=== PATIENT | female | born 1940 | race Caucasian/White ===

== ENCOUNTER 2024-01-15 00:12 | Inpatient (IN) | payer MEDICARE, OTHER ==
[2024-01-15] MEDS ORDERED: Ondansetron PF 4 MG/2 ML Vial IVP PRN (03:01)
[2024-01-15] MEDS ORDERED: Acetaminophen 325 MG TAB PO PRN (03:01)
[2024-01-15 03:11] VITALS: BMI 33.8
[2024-01-15 05:15] LABS: Hematocrit 37.4 % (36.0-47.0); Hemoglobin 12.1 g/dL (12.0-16.0); Manual Diff?? YES; Mean Corpuscular HGB CONC 32.4 g/dL (32.0-36.0); Mean Corpuscular Volume 92.8 fl (78.0-98.0); Mean Platelet Volume 9.7 fL (7.4-10.4); Platelet Count 108 10x3/uL (130-400); RBC Distribution Width 14.1 % (11.5-14.5); Red Blood Cell (RBC) Count 4.03 mill/uL (4.20-5.40); White Blood Cell (WBC) Count 40.5 10x3/uL (4.8-10.8)
[2024-01-15 05:21] LABS: Delete Auto Diff?? YES
[2024-01-15 05:34] LABS: ALT (SGPT) 13 U/L (8-55); AST (SGOT) 21 U/L (5-34); Albumin 3.8 g/dL (3.4-4.8); Alkaline Phosphatase 48 U/L (40-110); Anion Gap 10 mmol/L (10-20); BUN (Urea Nitrogen) 17 mg/dL (9.8-20.1); Bilirubin, Total 1.5 mg/dL (0.2-1.2); Calc. Creatinine Clearance 70 mL/min (70-130); Calcium 8.9 mg/dL (7.8-10.44); Carbon Dioxide 30 mmol/L (23-31); Chloride 103 mmol/L (98-107); Estimated GFR 67; Glucose 129 mg/dL (83-110); Protein, Total 5.8 g/dL (5.8-8.1); Sodium 139 mmol/L (136-145)
[2024-01-15 05:59] LABS: CellaVision Operator ID lab.sh2; Hypochromia SLIGHT = 6-15 cells HPF (0-5); Lymphocytes 60 % (21-51); Monocytes 2 % (0-10); Neutrophil 38 % (42-75); Ovalocytes SLIGHT = 2-5 cells HPF (0-1); Platelet Adequacy Comment Platelets Decreased; Polychromasia SLIGHT = 2-3 cells HPF (0-2); Total Cell Count 50
[2024-01-15] MEDS: Famotidine 20 MG TAB PO SCH (08:58)
[2024-01-15] MEDS: Thyroid 60 MG TAB PO SCH (10:54)
[2024-01-15] MEDS ORDERED: Glucagon 1 MG/ML KIT IM PRN (15:46)
[2024-01-15] MEDS ORDERED: Dextrose 5% in Water 1,000 ML IV PRN (15:46)
[2024-01-15] MEDS ORDERED: HumaLOG 300 UNITS/3 ML VIAL SC PRN ×2 (15:46)
[2024-01-15] MEDS ORDERED: Dextrose 50% Abboject 50 ML SYRINGE SLOW IVP PRN (15:46)
[2024-01-15] MEDS: Ciprofloxacin 500 MG TAB PO SCH (19:35)
[2024-01-16] MEDS: Ibuprofen 200 MG TAB PO PRN (05:32)
[2024-01-16 06:27] LABS: Hematocrit 36.2 % (36.0-47.0); Hemoglobin 11.8 g/dL (12.0-16.0); Manual Diff?? YES; Mean Corpuscular HGB CONC 32.6 g/dL (32.0-36.0); Mean Corpuscular Hemoglobin 29.6 pg (27.0-31.0); Mean Platelet Volume 9.9 fL (7.4-10.4); Platelet Count 99 10x3/uL (130-400); RBC Distribution Width 14.1 % (11.5-14.5); Red Blood Cell (RBC) Count 3.98 mill/uL (4.20-5.40); White Blood Cell (WBC) Count 36.2 10x3/uL (4.8-10.8)
[2024-01-16 06:37] LABS: Delete Auto Diff?? YES
[2024-01-16 07:00] LABS: Anion Gap 13 mmol/L (10-20); BUN (Urea Nitrogen) 20 mg/dL (9.8-20.1); Calc. Creatinine Clearance 64 mL/min (70-130); Carbon Dioxide 25 mmol/L (23-31); Chloride 105 mmol/L (98-107); Estimated GFR 60; Glucose 101 mg/dL (83-110); Potassium 3.8 mmol/L (3.5-5.1); Sodium 139 mmol/L (136-145)
[2024-01-16 07:28] LABS: CellaVision Operator ID LAB.KW3; Eosinophils 3 % (0-10); Lymphocytes 70 % (21-51); Monocytes 6 % (0-10); Neutrophil 20 % (42-75); Platelet Adequacy Comment Platelets Decreased; RBC Morphology Within Normal Limits; Reactive Lymphocytes 1 % (0-10); Total Cell Count 99
[2024-01-16] MEDS ORDERED: Non-Formulary Item 1 EACH (Losartan/Hydrochlorothiazide [Losartan-Hctz 100-25 Mg Tab] 1 E PO SCH (09:00)
[2024-01-16] MEDS: Losartan 25 MG TAB PO SCH (09:14)
[2024-01-16] MEDS: Hydrochlorothiazide 25 MG TAB PO SCH (09:14)
[2024-01-17] MEDS: Artificial Tear Sol 15 ML BOT EA EYE PRN (05:26)
[2024-01-17 06:11] LABS: Anion Gap 13 mmol/L (10-20); BUN (Urea Nitrogen) 25 mg/dL (9.8-20.1); Calc. Creatinine Clearance 61 mL/min (70-130); Calcium 9.2 mg/dL (7.8-10.44); Carbon Dioxide 25 mmol/L (23-31); Chloride 106 mmol/L (98-107); Estimated GFR 57; Glucose 103 mg/dL (83-110); Potassium 3.9 mmol/L (3.5-5.1); Sodium 140 mmol/L (136-145)
[2024-01-17 06:32] LABS: Hematocrit 37.5 % (36.0-47.0); Hemoglobin 12.5 g/dL (12.0-16.0); Mean Corpuscular HGB CONC 33.3 g/dL (32.0-36.0); Mean Corpuscular Hemoglobin 30.1 pg (27.0-31.0); Mean Corpuscular Volume 90.4 fl (78.0-98.0); Mean Platelet Volume 9.7 fL (7.4-10.4); Platelet Count 96 10x3/uL (130-400); RBC Distribution Width 14.2 % (11.5-14.5); Red Blood Cell (RBC) Count 4.15 mill/uL (4.20-5.40); White Blood Cell (WBC) Count 31.4 10x3/uL (4.8-10.8)
[2024-01-17 08:11] LABS: Band 3 % (5-11); Eosinophils 5 % (0-10); Lymphocytes 57 % (21-51); Neutrophil 29 % (42-75); Platelet Adequacy Comment Platelets Decreased; RBC Morphology Within Normal Limits; Reactive Lymphocytes 5 % (0-10)
[2024-01-18 04:40] LABS: Hematocrit 38.5 % (36.0-47.0); Mean Corpuscular HGB CONC 33.8 g/dL (32.0-36.0); Mean Corpuscular Hemoglobin 30.4 pg (27.0-31.0); Mean Platelet Volume 9.8 fL (7.4-10.4); Platelet Count 113 10x3/uL (130-400); RBC Distribution Width 14.2 % (11.5-14.5); Red Blood Cell (RBC) Count 4.28 mill/uL (4.20-5.40)
[2024-01-18 04:47] VITALS: TEMP 97.8
[2024-01-18 04:56] LABS: Anion Gap 13 mmol/L (10-20); BUN (Urea Nitrogen) 28 mg/dL (9.8-20.1); Calc. Creatinine Clearance 61 mL/min (70-130); Calcium 9.2 mg/dL (7.8-10.44); Carbon Dioxide 25 mmol/L (23-31); Chloride 105 mmol/L (98-107); Estimated GFR 57; Glucose 132 mg/dL (83-110); Potassium 3.6 mmol/L (3.5-5.1); Sodium 139 mmol/L (136-145)
[2024-01-18 05:12] LABS: Eosinophils 4 % (0-10); Large Platelets 2.2 % (0-5); Lymphocytes 48 % (21-51); Monocytes 4 % (0-10); Neutrophil 39 % (42-75); Platelet Adequacy Comment Platelets Decreased; RBC Morphology Within Normal Limits; Reactive Lymphocytes 4 % (0-10); Smudge Cells 460.9 %
[2024-01-18] MEDS: Ondansetron ODT 4 MG TAB PO PRN (05:39)
[2024-01-18 09:28] VITALS: BP 100/60
== END 2024-01-18 16:10 | disposition home or self-care (01) | DRG 690 ==
LOC: MSONC 02:22 → OBSVTOIN 15:38
PROVIDERS: ADMIT Student in an Organized Health Care Education/Training Program; ATTEND Family Medicine
DX: N39.0 Urinary tract infection, site not specified (principal); C91.11 Chronic lymphocytic leukemia of B-cell type in remission; E03.9 Hypothyroidism, unspecified; I10 Essential (primary) hypertension; E11.9 Type 2 diabetes mellitus without complications; E78.5 Hyperlipidemia, unspecified; R53.81 Other malaise; W18.2XXA Fall in (into) shower or empty bathtub, initial encounter; Z79.899 Other long term (current) drug therapy; Z88.8 Allergy status to other drugs, medicaments and biological substances; Z90.710 Acquired absence of both cervix and uterus; Z90.49 Acquired absence of other specified parts of digestive tract; Z79.84 Long term (current) use of oral hypoglycemic drugs; Z98.890 Other specified postprocedural states
CPT/HCPCS: 36415; 36416; 80048; 80053; 85025; G0378; Q0162